=== PATIENT | male | born 1960 | race Caucasian/White ===

== ENCOUNTER 2019-02-25 10:02 | Outpatient (CLI) | payer BC ==
[2019-02-25 11:19] LABS: #Basophils 0.1 thou/uL (0.0-0.2); #Eosinphils 0.2 thou/uL (0.0-0.7); #Lymphocytes 2.2 thou/uL (1.20-3.40); #Monocytes 0.8 thou/uL (0.11-0.59); #Neutrophils 5.1 thou/uL (1.40-6.50); %Basophils 1.2 % (0.0-1.0); %Eosinophils 2.5 % (0.0-10.0); %Lymphocytes 25.8 % (21.0-51.0); %Monocytes 9.2 % (0.0-10.0); %Neutrophils 61.4 % (42.0-75.0); Hemoglobin 14.6 g/dL (14.0-18.0); Mean Corpuscular HGB CONC 34.2 g/dL (32.0-36.0); Mean Corpuscular Hemoglobin 30.9 pg (27.0-31.0); Mean Corpuscular Volume 90.3 fL (78.0-98.0); Mean Platelet Volume 7.5 fL (7.4-10.4); Platelet Count 270 thou/uL (130-400); RBC Distribution Width 12.8 % (11.5-14.5); Red Blood Cell (RBC) Count 4.74 mill/uL (4.70-6.10); White Blood Cell (WBC) Count 8.4 thou/uL (4.8-10.8)
[2019-02-25 11:41] LABS: Anion Gap 13 mmol/L (10-20); BUN (Urea Nitrogen) 12 mg/dL (8.4-25.7); Calc. Creatinine Clearance 0 mL/min (70-130); Calcium 9.7 mg/dL (7.8-10.44); Carbon Dioxide 24 mmol/L (22-29); Chloride 101 mmol/L (98-107); Estimated GFR-MDRD 54; Glucose 175 mg/dL (70-105); Potassium 3.9 mmol/L (3.5-5.1); Sodium 134 mmol/L (136-145)
--- NOTE | 2019-02-25 21:28 | EKG ---
Test Reason : Blood Pressure : / mmHG Vent. Rate : 071 BPM Atrial Rate : 071 BPM P-R Int : 140 ms QRS Dur : 094 ms QT Int : 400 ms P-R-T Axes : 059 -11 030 degrees QTc Int : 434 ms Normal sinus rhythm Normal ECG When compared with ECG of 08-JAN-2014 19:29, No significant change was found Confirmed by Cha HERRERA ([id number]) on 02/25/2019 9:28:11 PM Referred By: JEFF Confirmed By:Cha HERRERA
== END 2019-02-25 10:03 | disposition home or self-care (01) ==
LOC: LABBT 10:02
PROVIDERS: ATTEND Specialist
DX: Z01.818 Encounter for other preprocedural examination (principal); K42.9 Umbilical hernia without obstruction or gangrene
CPT/HCPCS: 80048; 85025; 93005; 93010

== ENCOUNTER 2019-03-08 06:00 | Day surgery (SDC) | payer BC ==
[2019-02-25 10:06] VITALS: BMI 35.3
[2019-03-08] MEDS ORDERED: Bupivacaine/Epinephrine 0.25% 30 ML VIAL ONE (06:28)
[2019-03-08] MEDS ORDERED: Ketorolac Tromethamine 30 MG/ML VIAL ONE (06:34)
[2019-03-08] MEDS ORDERED: Famotidine/PF 20 mg/2ml Vial ONE (06:42)
[2019-03-08] MEDS ORDERED: Fentanyl 100 MCG/2 ML VIAL ONE (06:42)
[2019-03-08] MEDS ORDERED: Clindamycin/D5W 900 mg/50 ml Premix Bag ONE (07:17)
[2019-03-08] MEDS ORDERED: Levofloxacin 500 mg/D5W 100 ml Premix Bag ONE (07:17)
[2019-03-08] MEDS ORDERED: Ondansetron PF 4 MG/2 ML Vial ONE (11:52)
[2019-03-08] MEDS ORDERED: Lidocaine 1% PF 5 ML VIAL ONE (11:52)
[2019-03-08] MEDS ORDERED: Metoclopramide HCl 10 MG/2 ML VIAL ONE (11:52)
[2019-03-08] MEDS ORDERED: PHENYLEPHRINE-NS 100 MCG/ML 10 ML SYRINGE ONE (11:52)
[2019-03-08] MEDS ORDERED: Rocuronium Bromide 10 MG/ML (10ML VIAL) ONE (11:52)
[2019-03-08] MEDS ORDERED: Glycopyrrolate 0.2 MG/ML 5 ML SYRINGE ONE (11:52)
[2019-03-08] MEDS ORDERED: Dexamethasone 20 MG/5 ML VIAL ONE (11:52)
[2019-03-08] MEDS ORDERED: PROPOFOL 200 MG/20 ML VIAL ONE (11:52)
--- NOTE | 2019-03-09 10:07 | OP ---
DATE OF PROCEDURE: 03/08/2019 PREOPERATIVE DIAGNOSIS: Umbilical hernia. POSTOPERATIVE DIAGNOSIS: Umbilical hernia. OPERATION PERFORMED: Laparoscopic repair of umbilical hernia with 6.2 cm Ventralex mesh patch. ANESTHESIA: General endotracheal. INDICATIONS: The patient is a 58-year-old morbidly obese white male. He presents with an obvious visible and palpable and reducible umbilical hernia. He was taken to the operative room at this time for repair. DESCRIPTION OF OPERATION: Informed consent was obtained. The patient was taken to the operating room, where general endotracheal anesthesia was obtained with the patient in supine position. Abdomen was prepped with ChloraPrep, draped in sterile fashion. Local anesthetic was infiltrated using 0.25% Marcaine with epinephrine. A 5 mm left lateral incision was created through which a Veress needle was passed. The peritoneal cavity and pneumoperitoneum were established using carbon dioxide up to pressure of 15 mmHg. A 5 mm trocar port was passed through the same incision. Laparoscopic camera was passed internally. Under direct vision, 2 additional ports were placed including a 12 mm left upper quadrant port and a 5 mm left lower quadrant port. Attention was turned to the anterior abdomen. There was noted to be omentum adherent and somewhat incarcerated within the hernia. This was carefully dissected away using electrocautery. There was abundant preperitoneal fatty tissue around the obvious hernia. This was dissected circumferentially about 4 cm from the hernia defect, exposing the underlying fascia. The hernia defect was measured and was about 2 cm in diameter. The defect was repaired with 3 interrupted sutures of 0 Ethibond. One of these was placed with intracorporeal suturing, obtaining bites of the fascia superiorly and inferiorly as well as a bite of the anterior aspect of the hernia sac to close off some of the space within the hernia sac. The suture was tied using extracorporeal time with a knot pusher. The other two 0 Ethibond sutures were placed percutaneously using a GraNee needle. As these three sutures were tied with the pressure decreased within the abdomen, there was excellent closure of the defect. A 6.4 cm Ventralex mesh patch was obtained. The tails were trimmed away. I placed 4 quadrant sutures of 0 Ethibond and then passed the mesh into the abdominal cavity. The sutures were pulled through the anterior abdominal wall using a GraNee needle in the premarked four quadrant fashion. As the sutures were tied, there was excellent transfascial fixation of the patch with excellent hernia coverage. The remainder of the patch was secured using a series of SecureStrap tacks that were placed circumferentially and within the center of the mesh patch as well. The fascia at the 12 mm port site was closed with 0 Vicryl suture using a GraNee needle. All ports and instruments were removed under direct vision. Pneumoperitoneum was carefully evacuated. A 0.25% Marcaine with epinephrine was infiltrated at port site. Skin edges approximated with 4-0 Monocryl subcuticular suture. Dermabond was placed externally. At this side of the umbilicus, noted to be excellent umbilical inversion with the umbilicoplasty suture that had been placed. I also placed a compression dressing fashioned out of cotton balls and a Tegaderm dressing in the usual fashion. The patient tolerated this procedure well and was taken to recovery room in stable condition. Job ID: [id number]
== END 2019-03-08 11:00 | disposition home or self-care (01) ==
LOC: SDC 06:00
PROVIDERS: ATTEND Specialist
PROC: 0WUF4JZ Supplement Abdominal Wall with Synthetic Substitute, Percutaneous Endoscopic Approach (ICD-10-PCS; principal; 2019-03-08)
DX: K42.9 Umbilical hernia without obstruction or gangrene (principal); I10 Essential (primary) hypertension; J45.909 Unspecified asthma, uncomplicated; E11.9 Type 2 diabetes mellitus without complications; K58.9 Irritable bowel syndrome, unspecified; K21.9 Gastro-esophageal reflux disease without esophagitis; F41.9 Anxiety disorder, unspecified; F32.9 Major depressive disorder, single episode, unspecified; E66.01 Morbid (severe) obesity due to excess calories; Z68.35 Body mass index [BMI] 35.0-35.9, adult; Z79.84 Long term (current) use of oral hypoglycemic drugs; Z79.899 Other long term (current) drug therapy; Z88.0 Allergy status to penicillin; Z88.2 Allergy status to sulfonamides; Z98.890 Other specified postprocedural states
CPT/HCPCS: J0131; J0690; J1100; J1885; J1956; J2001; J2405; J2704; J2765; J3010; J3490; S0028

== ENCOUNTER 2020-01-20 05:46 | Outpatient (CLI) | payer BC, OTHER ==
[2020-01-20 10:24] LABS: #Basophils 0.1 thou/uL (0.0-0.2); #Eosinphils 0.4 thou/uL (0.0-0.7); #Lymphocytes 2.2 thou/uL (1.20-3.40); #Monocytes 0.8 thou/uL (0.11-0.59); #Neutrophils 7.1 thou/uL (1.40-6.50); %Basophils 0.5 % (0.0-1.0); %Eosinophils 4.2 % (0.0-10.0); %Lymphocytes 20.9 % (21.0-51.0); %Monocytes 7.7 % (0.0-10.0); %Neutrophils 66.7 % (42.0-75.0); Hemoglobin 14.2 g/dL (14.0-18.0); Mean Corpuscular HGB CONC 32.4 g/dL (32.0-36.0); Mean Corpuscular Volume 92.6 fL (78.0-98.0); Mean Platelet Volume 7.7 fL (7.4-10.4); Platelet Count 278 thou/uL (130-400); RBC Distribution Width 13.6 % (11.5-14.5); Red Blood Cell (RBC) Count 4.74 mill/uL (4.70-6.10); White Blood Cell (WBC) Count 10.6 thou/uL (4.8-10.8)
[2020-01-20 11:10] LABS: Anion Gap 12 mmol/L (10-20); BUN (Urea Nitrogen) 17 mg/dL (8.4-25.7); Calc. Creatinine Clearance 0 mL/min (70-130); Calcium 9.7 mg/dL (7.8-10.44); Carbon Dioxide 28 mmol/L (22-29); Chloride 102 mmol/L (98-107); Estimated GFR-MDRD 51; Glucose 132 mg/dL (70-105); Potassium 4.1 mmol/L (3.5-5.1); Sodium 138 mmol/L (136-145)
[2020-01-20 18:20] LABS: SARS-CoV-2 MS2 Positive; SARS-CoV-2 N Gene Negative; SARS-CoV-2 S Gene Negative; SARS-CoV-2 orf1ab Negative
--- NOTE | 2020-01-22 16:35 | EKG ---
Test Reason : Blood Pressure : / mmHG Vent. Rate : 064 BPM Atrial Rate : 064 BPM P-R Int : 130 ms QRS Dur : 078 ms QT Int : 422 ms P-R-T Axes : 021 020 059 degrees QTc Int : 435 ms Normal sinus rhythm Normal ECG When compared with ECG of 25-FEB-2019 10:45, No significant change was found Confirmed by CONCEPCIÓN GUTIÉRREZ ([id number]) on 01/22/2020 4:34:37 PM Referred By: RANJIT Confirmed By:CONCEPCIÓN GUTIÉRREZ
== END 2020-01-20 05:47 | disposition home or self-care (01) ==
LOC: LABBT 05:46
PROVIDERS: ATTEND Specialist
DX: Z01.818 Encounter for other preprocedural examination (principal); Z11.59 Encounter for screening for other viral diseases; K43.9 Ventral hernia without obstruction or gangrene; M62.08 Separation of muscle (nontraumatic), other site
CPT/HCPCS: 80048; 85025; 87635; 93005; 93010; U0003

== ENCOUNTER 2020-01-25 11:01 | Day surgery (SDC) | payer BC ==
[2020-01-20 09:05] VITALS: BMI 33.5
[2020-01-25] MEDS ORDERED: Lidocaine 1% PF 5 ML VIAL ONE (11:07)
[2020-01-25] MEDS ORDERED: Metoclopramide HCl 10 MG/2 ML VIAL ONE (11:07)
[2020-01-25] MEDS ORDERED: Dexamethasone 20 MG/5 ML VIAL ONE (11:07)
[2020-01-25] MEDS ORDERED: Succinylcholine Chloride 20 MG/ML 10 ml SYRINGE FS ONE (11:07)
[2020-01-25] MEDS ORDERED: Rocuronium Bromide 10 MG/ML (10ML VIAL) ONE (11:07)
[2020-01-25] MEDS ORDERED: PROPOFOL 200 MG/20 ML VIAL ONE (11:07)
[2020-01-25] MEDS ORDERED: Acetaminophen 500 MG TAB ONE (11:55)
[2020-01-25] MEDS ORDERED: Ketorolac Tromethamine 30 MG/ML VIAL ONE (11:55)
[2020-01-25] MEDS ORDERED: Lidocaine 1% w/Epinephrine 1:100K 20 ML VIAL ONE (12:21)
[2020-01-25] MEDS ORDERED: Bupivacaine 0.25% HCL 30 ML VIAL ONE (12:21)
[2020-01-25] MEDS ORDERED: Fentanyl 100 MCG/2 ML VIAL ONE (12:55)
[2020-01-25] MEDS ORDERED: SUGAMMADEX SODIUM 200 MG/2 ML VIAL ONE (12:56)
[2020-01-25] MEDS ORDERED: Famotidine/PF 20 mg/2ml Vial ONE (12:56)
[2020-01-25] MEDS ORDERED: Albuterol Sulfate HFA (OR ONLY) ONE (13:02)
--- NOTE | 2020-01-26 19:29 | OP ---
DATE OF PROCEDURE: 01/25/2020 PREOPERATIVE DIAGNOSIS: Recurrent ventral hernia. POSTOPERATIVE DIAGNOSIS: Recurrent ventral hernia. PROCEDURE PERFORMED: Robotic repair of a new ventral incisional hernia with mesh using an 11 x 8 cm Ventralex mesh patch. ANESTHESIA: General endotracheal. INDICATIONS FOR PROCEDURE: The patient is a 59-year-old white male. I had previously performed laparoscopic repair of an umbilical hernia. A few years after this repair, he had noted a visible mass bulging about 5 or 6 cm superior to the umbilicus. He was taken to the operative room at this time for repair of this. area of prior hernia repair, I decided to perform this robotically. DESCRIPTION OF OPERATION: Informed consent was obtained. The patient was taken to the operating room and general endotracheal anesthesia was obtained. The patient was in supine position. Gaitan catheter was placed. Abdomen was prepped with ChloraPrep and draped in sterile fashion. Local anesthetic was infiltrated using a mixture of 1% lidocaine and 0.25% Marcaine with epinephrine. I utilized the same 3 incisions a laparoscopic repair on the left side. I initially gained entry with an 11 mm left lateral mid abdominal incision. Each incision was infiltrated with local anesthetic before creating the incision. A Veress needle was passed into the abdominal cavity and pneumoperitoneum was established with carbon dioxide up to pressure of 15 mmHg. A 12 mm balloon-tipped trocar port was placed. Under direct vision, two additional 8 mm robotic ports were placed superiorly and inferiorly. The robot was docked to the ports and to the camera and the operation was continued from the robotic console. There were adhesions to the anterior abdominal wall. All of these were omental, except for a single loop of small bowel that was adherent to the inferior aspect of the prior mesh. This was very carefully taken down with sharp dissection, taking care to avoid an enterotomy. The omental adhesions were all mobilized carefully as well. When the entire anterior abdominal wall was cleared, it was very obvious where the prior 6 cm mesh patch was. This was intact and much of it was well peritonealized. The hernia was at the superior aspect of the mesh patch. This measured about 2 x 2.5 cm. There was only some fatty material herniated within this that was easily mobilized. I closed the hernia defect with a running suture of #1 permanent V-Loc suture in a transverse fashion. Using the same suture, I then performed an approximation with repair of the fairly wide diastasis recti that led to the weakness at this site. This more or less closed over the hernia repair and extended superiorly about 4 or 5 cm. I then obtained a Ventralex mesh patch. This was initially an 11 cm lovelock. I converted into an 11 x 8 cm oval. I centered the mesh a little bit superior of the hernia defect. Much of this was therefore overlying the prior mesh patch, but the superior aspect was underneath the diastasis repair. I secured this circumferentially with a running suture of 2-0 Stratafix. I examined the small bowel one last time and found no evidence of any injury. The fascial defect at the 12 mm port site was closed with 0 Vicryl suture using a GraNee needle. All ports and instruments were removed under direct vision. Pneumoperitoneum was carefully evacuated. 0.25% Marcaine with epinephrine was infiltrated in the port site. Skin edges approximated with 4-0 Monocryl subcuticular suture. Dermabond was placed externally. There were no complications. The patient tolerated the procedure well and was taken to the recovery room in stable condition. Job ID: [id number]
== END 2020-01-25 16:47 | disposition home or self-care (01) ==
LOC: SDC 11:01
PROVIDERS: ATTEND Specialist
PROC: 0WUF4JZ Supplement Abdominal Wall with Synthetic Substitute, Percutaneous Endoscopic Approach (ICD-10-PCS; principal; 2020-01-25)
DX: K43.2 Incisional hernia without obstruction or gangrene (principal); I10 Essential (primary) hypertension; E11.9 Type 2 diabetes mellitus without complications; K21.9 Gastro-esophageal reflux disease without esophagitis; F41.9 Anxiety disorder, unspecified; F32.9 Major depressive disorder, single episode, unspecified; J45.909 Unspecified asthma, uncomplicated; Z79.84 Long term (current) use of oral hypoglycemic drugs; Z79.899 Other long term (current) drug therapy; Z88.0 Allergy status to penicillin; Z88.2 Allergy status to sulfonamides
CPT/HCPCS: C1781; J0690; J1100; J1885; J2001; J2704; J2765; J3010; S0020; S0028

== ENCOUNTER 2021-06-24 17:06 | Outpatient (CLI) | payer BC ==
[2021-06-24 18:56] LABS: #Basophils 0.1 10x3/uL (0.0-0.2); #Eosinphils 0.2 10x3/uL (0.0-0.5); #Monocytes 0.8 10x3/uL (0.0-1.1); #Neutrophils 7.3 10x3/uL (1.5-8.4); %Basophils 0.8 % (0.0-2.0); %Eosinophils 1.8 % (0.0-6.0); %Lymphocytes 22.5 % (18.0-47.0); %Monocytes 7.5 % (0.0-10.0); %Neutrophils 66.7 % (40.0-75.0); Hemoglobin 14.1 g/dL (13.5-17.5); Mean Corpuscular HGB CONC 33.6 g/dL (32.0-36.0); Mean Corpuscular Hemoglobin 30.8 pg (27.0-33.0); Mean Corpuscular Volume 91.7 fl (81.2-95.1); Mean Platelet Volume 10.4 fl (7.4-10.4); Platelet Count 336 10x3/uL (150-450); RBC Distribution Width 13.2 % (11.5-14.5); Red Blood Cell (RBC) Count 4.58 10x6/uL (4.32-5.72)
[2021-06-25 20:35] LABS: SARS-CoV-2 PCR by NAA Not Detected (NotDetected)
== END 2021-06-24 17:07 | disposition home or self-care (01) ==
LOC: LABBT 17:06
PROVIDERS: ATTEND Orthopaedic Surgery
DX: Z01.818 Encounter for other preprocedural examination (principal); S46.012A Strain of muscle(s) and tendon(s) of the rotator cuff of left shoulder, initial encounter; Z20.822 Contact with and (suspected) exposure to COVID-19
CPT/HCPCS: 85025; 93005; 93010; U0003; U0005

== ENCOUNTER 2021-06-27 07:06 | Day surgery (SDC) | payer BC ==
[2021-06-26 11:33] VITALS: BMI 35.4
[2021-06-27] MEDS ORDERED: Clindamycin/D5W 600 mg/50 ml Premix Bag ONE (07:46)
[2021-06-27] MEDS ORDERED: Fentanyl 100 MCG/2 ML VIAL ONE ×2 (08:11→10:22)
[2021-06-27] MEDS ORDERED: Midazolam HCl 2 mg/2 ml Vial ONE (08:11)
[2021-06-27] MEDS ORDERED: Fentanyl 100 MCG/2 ML VIAL SLOW IVP PRN (09:04)
[2021-06-27] MEDS ORDERED: Promethazine HCl 25 MG/ML VIAL IM PRN (09:15)
[2021-06-27] MEDS ORDERED: Ketorolac Tromethamine 30 MG/ML VIAL IVP PRN (09:15)
[2021-06-27] MEDS ORDERED: Ropivacaine 0.2% 550 ML 550 ML NERVE BLCK SCH (09:15)
[2021-06-27] MEDS ORDERED: HYDROcodone/Acetaminophen 10/325 mg Tablet PO PRN ×2 (09:15)
[2021-06-27] MEDS ORDERED: traMADol HCl 50 MG TAB PO PRN ×2 (09:15)
[2021-06-27] MEDS ORDERED: Ondansetron PF 4 MG/2 ML Vial IVP PRN (09:15)
[2021-06-27] MEDS ORDERED: Zolpidem Tartrate 5 MG TAB PO PRN (09:15)
[2021-06-27] MEDS ORDERED: Dexamethasone 20 MG/5 ML VIAL ONE (10:36)
[2021-06-27] MEDS ORDERED: Lidocaine 1% PF 5 ML VIAL ONE (10:36)
[2021-06-27] MEDS ORDERED: PHENYLEPHRINE-NS 100 MCG/ML 10 ML SYRINGE ONE (10:36)
[2021-06-27] MEDS ORDERED: ePHEDrine 50 MG/ML VIAL ONE (10:36)
[2021-06-27] MEDS ORDERED: Rocuronium Bromide 10 MG/ML (10ML VIAL) ONE (10:36)
[2021-06-27] MEDS ORDERED: PROPOFOL 200 MG/20 ML VIAL ONE (10:36)
[2021-06-27] MEDS ORDERED: Bupivacaine HCl 0.5%/Epinephrine 1:200,000/PF 30 ml Vial ONE (10:36)
[2021-06-27] MEDS ORDERED: Ketorolac Tromethamine 30 MG/ML VIAL ONE (10:36)
[2021-06-27] MEDS ORDERED: Ondansetron PF 4 MG/2 ML Vial ONE (10:36)
[2021-06-27] MEDS ORDERED: Lidocaine 1% w/Epinephrine 1:100K 20 ML VIAL ONE (10:56)
[2021-06-27] MEDS ORDERED: SUGAMMADEX SODIUM 200 MG/2 ML VIAL ONE (11:42)
== END 2021-06-27 14:15 | disposition home or self-care (01) ==
LOC: SDC 07:06
PROVIDERS: ATTEND Orthopaedic Surgery
PROC: 3E0T3BZ Introduction of Anesthetic Agent into Peripheral Nerves and Plexi, Percutaneous Approach (ICD-10-PCS; principal; 2021-06-27)
PROC: 0LQ20ZZ Repair Left Shoulder Tendon, Open Approach (ICD-10-PCS; principal; 2021-06-27)
DX: S46.012A Strain of muscle(s) and tendon(s) of the rotator cuff of left shoulder, initial encounter (principal); M19.012 Primary osteoarthritis, left shoulder; M62.512 Muscle wasting and atrophy, not elsewhere classified, left shoulder; M75.22 Bicipital tendinitis, left shoulder; I10 Essential (primary) hypertension; J45.909 Unspecified asthma, uncomplicated; E11.9 Type 2 diabetes mellitus without complications; K21.9 Gastro-esophageal reflux disease without esophagitis; Z88.0 Allergy status to penicillin; Z88.1 Allergy status to other antibiotic agents; Z90.49 Acquired absence of other specified parts of digestive tract; Z87.19 Personal history of other diseases of the digestive system; Z79.84 Long term (current) use of oral hypoglycemic drugs; Z79.899 Other long term (current) drug therapy; W10.9XXA Fall (on) (from) unspecified stairs and steps, initial encounter
CPT/HCPCS: A4306; C1713; J2250; J2795; J3010; J3490